=== PATIENT | male | born 1960 | race Caucasian/White ===

== ENCOUNTER 2023-05-05 07:15 | Outpatient (CLI) | payer BC | END 2023-05-05 07:16 | disposition home or self-care (01) | LOC: CSHCT 07:15 | PROVIDERS: ATTEND Family Medicine | DX: I15.9 Secondary hypertension, unspecified (principal); N28.1 Cyst of kidney, acquired; N20.0 Calculus of kidney; K57.30 Diverticulosis of large intestine without perforation or abscess without bleeding | CPT/HCPCS: 74176 ==